=== PATIENT | female | born 1995 | race Caucasian/White ===

== ENCOUNTER → 2016-05-23 | Outpatient (CLI) | payer OTHER ==
--- NOTE | 2016-05-23 10:11 | DIAGNOSTIC IMAGING REPORT ---
RIGHT TIBIA/FIBULA 2 VIEWS, LEFT TIBIA/FIBULA 2 VIEWS CLINICAL HISTORY: B/L SALDAÑA PAIN Right COMPARISON STUDY: None. FINDINGS: No fracture or dislocation within the bilateral tibia or fibula. Soft tissues are unremarkable. No abnormal periosteal reaction or cortical thickening. A 2 cm focus of increased sclerosis within the cortex of the mid shaft of the right fibula favors a benign lesion IMPRESSION: 1. No fracture or dislocation within the bilateral lower legs. 2. No abnormal periosteal reaction or cortical thickening. 3. A 2 cm sclerotic focus within the mid shaft of the right fibula. This favors a benign lesion. Electronically signed by: Milo Dong M.D. 05/23/2016 10:10 AM Dictated Date/Time: 05/23/2016 10:05 AM
== END | disposition home or self-care (01) ==
LOC: C.RDSM 12:25
PROVIDERS: ATTEND Family Medicine
DX: M79.669 Pain in unspecified lower leg (principal)

== ENCOUNTER → 2016-11-15 | Outpatient (CLI) | payer OTHER ==
--- NOTE | 2016-11-15 15:03 | DIAGNOSTIC IMAGING REPORT ---
LEFT FOOT MIN 3 VIEWS CLINICAL HISTORY: Left great toe pain COMPARISON: None. DISCUSSION: There is mild irregularity of the medial base of the first metatarsal, as visualized in the AP view.. This may represent a projectional artifact as no corresponding abnormalities visualized on additional projections. There are no other bony findings of significance. There are no subluxations. There are no bony erosions. There is equivocal mild soft tissue edema at the level the first metatarsal phalangeal joint medially IMPRESSION: 1. Minimal irregularity of the medial base of the first metatarsal, visualized only on a single view. It is unclear whether this represents a true finding or projectional artifact. Please correlate with the patient's site of pain Electronically signed by: Fernando Garcia M.D. 11/15/2016 3:02 PM Dictated Date/Time: 11/15/2016 2:59 PM
== END | disposition home or self-care (01) ==
LOC: C.RDSM 14:45
PROVIDERS: ATTEND Family Medicine
DX: M79.675 Pain in left toe(s) (principal)